=== PATIENT | female | born 1995 | race Two or more races ===

== ENCOUNTER 2022-01-20 18:09 | Observation (INO) | payer OTHER ==
[2022-01-20] MEDS ORDERED: LACTATED RINGERS SOLUTION 1000 ML INFUS.BAG IV ONE ×2 (19:49→21:17)
[2022-01-20] MEDS ORDERED: ONDANSETRON 4 MG/2 ML VIAL IVPUSH ONE (19:49)
[2022-01-20] MEDS ORDERED: FAMOTIDINE 20 MG/50 ML IVPB 20 MG/50 ML MG IVPB ONE ×2 (19:49→20:14)
[2022-01-20] MEDS ORDERED: ONDANSETRON 4 MG/2 ML VIAL ONE (20:14)
[2022-01-20 20:50] LABS: BASO % 0.3 % (0-2.0); EOS % 0.4 % (0-4.5); HEMATOCRIT 41.3 % (32.4-45.2); LYMPH % 12.8 % (8-40); MCH 31.5 pg (25.7-33.7); MCHC 33.8 g/dl (32.0-36.0); MEAN CELL VOLUME 93.3 fl (80-96); MEAN PLT VOLUME 8.5 fl (7.5-11.1); MONO % 5.5 % (3.8-10.2); PLATELET COUNT 208 10^3/uL (134-434); RBC 4.43 M/mm3 (3.60-5.2); RDW 13.2 % (11.6-15.6); WHITE BLOOD COUNT 6.9 K/mm3 (4.0-10.0)
[2022-01-20 20:53] LABS: URINE APPEARANCE CLEAR; URINE BILIRUBIN NEGATIVE (NEGATIVE); URINE COLOR YELLOW; URINE GLUCOSE (UA) NEGATIVE (NEGATIVE); URINE KETONE 2+ (NEGATIVE); URINE LEUK ESTERASE NEGATIVE (NEGATIVE); URINE NITRITE NEGATIVE (NEGATIVE); URINE PROTEIN TRACE (NEGATIVE)
[2022-01-20] MEDS ORDERED: ACETAMINOPHEN 1000 MG/100 ML BAG IVPB ONE (21:13)
[2022-01-20] MEDS ORDERED: LORazepam 2 MG/ML SDV VIAL IVPUSH ONE (21:16)
[2022-01-20] MEDS ORDERED: DICYCLOMINE HCL 20 MG/2 ML AMPUL IM ONE (21:17)
[2022-01-20] MEDS ORDERED: METOCLOPRAMIDE HCL INJECTION 10 MG/2 ML VIAL IVPB ONE (21:17)
[2022-01-20] MEDS ORDERED: ACETAMINOPHEN INJECTION 100 ML IVPB ONE (21:33)
[2022-01-20] MEDS ORDERED: METOCLOPRAMIDE HCL INJECTION 10 MG/2 ML VIAL ONE (21:33)
[2022-01-20 22:03] LABS: ALBUMIN 4.6 g/dl (3.4-5.0); CALCIUM 10.2 mg/dL (8.5-10.1)
[2022-01-20 22:04] LABS: BLOOD UREA NITROGEN 11.5 mg/dL (7-18)
[2022-01-20 22:06] LABS: CREATININE 0.9 mg/dL (0.55-1.3)
[2022-01-20 22:08] LABS: BILIRUBIN,TOTAL 1.1 mg/dL (0.2-1)
[2022-01-21] MEDS ORDERED: KETOROLAC TROMETHAMINE 30 MG/1 ML VIAL IVPUSH ONE (01:41)
[2022-01-21] MEDS ORDERED: KETOROLAC TROMETHAMINE 30 MG/1 ML VIAL IM ONE (01:41)
[2022-01-21] MEDS ORDERED: METOCLOPRAMIDE HCL INJECTION 10 MG/2 ML VIAL IVPUSH PRN (01:44)
[2022-01-21] MEDS ORDERED: LACTATED RINGERS SOLUTION 1,000 ML/1,000 ML INFUS.BAG IV SCH (02:00)
[2022-01-21] MEDS ORDERED: KETOROLAC TROMETHAMINE 30 MG/1 ML VIAL ONE (02:06)
[2022-01-21 03:28] LABS: BILIRUBIN,DIRECT 0.3 mg/dL (0.0-0.2)
[2022-01-21 07:33] VITALS: TEMP 97.4
[2022-01-21 08:31] LABS: COCAINE, UR NEGATIVE (NEGATIVE); OPIATES, URI NEGATIVE (NEGATIVE); URINE BARBITURATES NEGATIVE (NEGATIVE)
[2022-01-21 08:32] LABS: METHADONE, UR NEGATIVE (NEGATIVE); PHENCYCLIDINE,URINE NEGATIVE (NEGATIVE); URINE AMPHETAMINES NEGATIVE (NEGATIVE); URINE BENZODIAZEPINES NEGATIVE (NEGATIVE)
[2022-01-21 09:29] VITALS: BP 116/67; PULSE 67; RESP 18
== END 2022-01-21 10:30 | disposition left against medical advice (07) ==
LOC: JER 18:09 → JERBED 01-21 00:25
PROVIDERS: ADMIT Internal Medicine; ATTEND Nurse Practitioner Acute Care
PROC: 3E033GC Introduction of Other Therapeutic Substance into Peripheral Vein, Percutaneous Approach (ICD-10-PCS; principal; 2022-01-21)
PROC: 3E033NZ Introduction of Analgesics, Hypnotics, Sedatives into Peripheral Vein, Percutaneous Approach (ICD-10-PCS; 2022-01-21)
PROC: 3E0333Z Introduction of Anti-inflammatory into Peripheral Vein, Percutaneous Approach (ICD-10-PCS; 2022-01-21)
PROC: 3E0337Z Introduction of Electrolytic and Water Balance Substance into Peripheral Vein, Percutaneous Approach (ICD-10-PCS; 2022-01-21)
DX: F12.288 Cannabis dependence with other cannabis-induced disorder (principal); R11.2 Nausea with vomiting, unspecified; F17.290 Nicotine dependence, other tobacco product, uncomplicated
CPT/HCPCS: 0241U-QW; 36415; 74177-TC; 76705-TC; 76830-TC; 80053; 80307; 81003; 82248; 83690; 84703; 85025; 87086; 93005; 93010; 96361; 96365; 96375; 99285-25; G0378; Q9967

== ENCOUNTER 2022-01-21 15:04 | Observation (INO) | payer OTHER ==
[2022-01-21] MEDS ORDERED: METOCLOPRAMIDE HCL INJECTION 10 MG/2 ML VIAL IVPUSH ONE (15:33)
[2022-01-21] MEDS ORDERED: SODIUM CHLORIDE 1,000 ML IV STA (15:33)
[2022-01-21] MEDS ORDERED: METOCLOPRAMIDE HCL INJECTION 10 MG/2 ML VIAL ONE (15:47)
[2022-01-21] MEDS ORDERED: FAMOTIDINE 20 MG/50 ML IVPB 20 MG/50 ML MG IVPB ONE ×2 (17:07→17:17)
[2022-01-21] MEDS ORDERED: MAG HYDROX/AL HYDROX/SIMETH 30 ML UNIT-DOSE CUP ONE (17:17)
[2022-01-21 18:06] LABS: BASO % 0.3 % (0-2.0); EOS % 0.1 % (0-4.5); HEMATOCRIT 31.7 % (32.4-45.2); HEMOGLOBIN 10.9 GM/dL (10.7-15.3); MCHC 34.6 g/dl (32.0-36.0); MEAN CELL VOLUME 92.7 fl (80-96); MEAN PLT VOLUME 8.7 fl (7.5-11.1); MONO % 7.8 % (3.8-10.2); NEUT % 79.8 % (42.8-82.8); PLATELET COUNT 171 10^3/uL (134-434); RBC 3.42 M/mm3 (3.60-5.2); WHITE BLOOD COUNT 5.4 K/mm3 (4.0-10.0)
[2022-01-21] MEDS ORDERED: HALOPERIDOL LACTATE 5 MG/ML IM ONE (18:12)
[2022-01-21] MEDS ORDERED: LACTATED RINGERS SOLUTION 1000 ML INFUS.BAG IV ONE (18:13)
[2022-01-21 18:27] LABS: CALCIUM 8.8 mg/dL (8.5-10.1)
[2022-01-21 18:28] LABS: BLOOD UREA NITROGEN 9.4 mg/dL (7-18)
[2022-01-21 18:30] LABS: CREATININE 0.6 mg/dL (0.55-1.3)
[2022-01-21 18:32] LABS: BILIRUBIN,TOTAL 1.1 mg/dL (0.2-1); TOT PROT 7.1 g/dl (6.4-8.2)
[2022-01-21 18:34] LABS: ALBUMIN 3.7 g/dl (3.4-5.0)
[2022-01-21] MEDS ORDERED: HALOPERIDOL LACTATE 5 MG/ML ONE (18:37)
[2022-01-21] MEDS ORDERED: morphine CARPU-JECT 2 MG/1 ML DISP.SYRIN IVPUSH ONE (19:48)
[2022-01-21] MEDS ORDERED: DICYCLOMINE HCL 20 MG/2 ML AMPUL IM ONE (19:49)
[2022-01-21] MEDS ORDERED: METOCLOPRAMIDE HCL INJECTION 10 MG/2 ML VIAL IVPUSH PRN (22:46)
[2022-01-21] MEDS ORDERED: KETOROLAC TROMETHAMINE 15 MG/ML VIAL IVPUSH PRN (22:47)
[2022-01-21] MEDS ORDERED: MELATONIN 5 MG TABLETS PO ONE (22:47)
[2022-01-21] MEDS ORDERED: MELATONIN 5 MG TABLETS ONE ×2 (22:52→22:59)
[2022-01-21] MEDS ORDERED: LACTATED RINGERS SOLUTION 1,000 ML/1,000 ML INFUS.BAG IV SCH (23:30)
[2022-01-22 00:45] VITALS: BMI 18.4
[2022-01-22 07:51] VITALS: BP 120/73; PULSE 74; RESP 20; TEMP 98.3
== END 2022-01-22 11:13 | disposition home or self-care (01) ==
LOC: JER 15:04 → INTOOBSV 22:35 → JERBED 22:35 → J8W 01-22 06:07
PROVIDERS: ADMIT Internal Medicine; ATTEND Nurse Practitioner Acute Care
PROC: 3E023GC Introduction of Other Therapeutic Substance into Muscle, Percutaneous Approach (ICD-10-PCS; principal; 2022-01-21)
PROC: 3E023GC Introduction of Other Therapeutic Substance into Muscle, Percutaneous Approach (ICD-10-PCS; 2022-01-21)
PROC: 3E033GC Introduction of Other Therapeutic Substance into Peripheral Vein, Percutaneous Approach (ICD-10-PCS; 2022-01-21)
DX: R11.10 Vomiting, unspecified (principal); F12.10 Cannabis abuse, uncomplicated; F31.9 Bipolar disorder, unspecified; R53.81 Other malaise
CPT/HCPCS: 36415; 80053; 83690; 85025; 93005; 93010; 96365; 96372; 99285-25; G0378

== ENCOUNTER 2022-01-22 15:06 | Emergency (ER) | payer OTHER ==
[2022-01-22 15:22] VITALS: BP 133/92; PULSE 87; RESP 16; TEMP 98.2; BMI 25.3
[2022-01-22] MEDS ORDERED: HALOPERIDOL LACTATE 5 MG/ML IM ONE (16:50)
[2022-01-22] MEDS ORDERED: SODIUM CHLORIDE 0.9% 500 ML INFUS.BAG IV ONE (16:50)
[2022-01-22] MEDS ORDERED: FAMOTIDINE 20 MG/50 ML IVPB 20 MG/50 ML MG IVPB ONE ×2 (16:50→17:23)
[2022-01-22] MEDS ORDERED: ONDANSETRON 4 MG/2 ML VIAL IVPUSH ONE (16:51)
[2022-01-22] MEDS ORDERED: ONDANSETRON 4 MG/2 ML VIAL ONE (17:22)
[2022-01-22] MEDS ORDERED: HALOPERIDOL LACTATE 5 MG/ML ONE (18:20)
[2022-01-22 18:50] LABS: BASO % 0.3 % (0-2.0); EOS % 0.2 % (0-4.5); HEMATOCRIT 34.3 % (32.4-45.2); HEMOGLOBIN 11.7 GM/dL (10.7-15.3); LYMPH % 9.7 % (8-40); MCH 31.8 pg (25.7-33.7); MEAN CELL VOLUME 93.4 fl (80-96); MEAN PLT VOLUME 9.7 fl (7.5-11.1); NEUT % 85.8 % (42.8-82.8); PLATELET COUNT 151 10^3/uL (134-434); RBC 3.68 M/mm3 (3.60-5.2); WHITE BLOOD COUNT 5.4 K/mm3 (4.0-10.0)
[2022-01-22 19:01] LABS: CALCIUM 9.1 mg/dL (8.5-10.1)
[2022-01-22 19:02] LABS: ALBUMIN 4.2 g/dl (3.4-5.0)
[2022-01-22 19:05] LABS: CREATININE 0.6 mg/dL (0.55-1.3)
[2022-01-22 19:06] LABS: BILIRUBIN,TOTAL 0.9 mg/dL (0.2-1); TOT PROT 7.8 g/dl (6.4-8.2)
== END 2022-01-23 00:35 | disposition left against medical advice (07) ==
LOC: JER 15:06
PROC: 3E023GC Introduction of Other Therapeutic Substance into Muscle, Percutaneous Approach (ICD-10-PCS; principal; 2022-01-22)
PROC: 3E033GC Introduction of Other Therapeutic Substance into Peripheral Vein, Percutaneous Approach (ICD-10-PCS; principal; 2022-01-22)
DX: R11.10 Vomiting, unspecified (principal)
CPT/HCPCS: 36415; 80053; 83690; 84703; 85025; 99284-25

== ENCOUNTER 2022-01-28 23:37 | Emergency (ER) | payer OTHER ==
[2022-01-29] VITALS: BP 106/72; PULSE 129; RESP 18; TEMP 98.1; BMI 18.8
[2022-01-29] MEDS ORDERED: METOCLOPRAMIDE HCL INJECTION 10 MG/2 ML VIAL IVPB ONE (00:54)
[2022-01-29] MEDS ORDERED: SODIUM CHLORIDE 0.9% 500 ML INFUS.BAG IV ONE (00:54)
[2022-01-29] MEDS ORDERED: METOCLOPRAMIDE HCL INJECTION 10 MG/2 ML VIAL ONE (00:57)
[2022-01-29 01:21] LABS: BASO % 0.6 % (0-2.0); EOS % 2.8 % (0-4.5); LYMPH % 28.3 % (8-40); MCH 31.6 pg (25.7-33.7); MCHC 34.2 g/dl (32.0-36.0); MEAN CELL VOLUME 92.3 fl (80-96); MEAN PLT VOLUME 8.5 fl (7.5-11.1); MONO % 11.9 % (3.8-10.2); NEUT % 56.4 % (42.8-82.8); PLATELET COUNT 306 10^3/uL (134-434); RBC 4.77 M/mm3 (3.60-5.2); RDW 13.4 % (11.6-15.6); WHITE BLOOD COUNT 4.9 K/mm3 (4.0-10.0)
[2022-01-29 01:36] LABS: CALCIUM 9.9 mg/dL (8.5-10.1)
[2022-01-29 01:37] LABS: ALBUMIN 4.4 g/dl (3.4-5.0); BLOOD UREA NITROGEN 6.3 mg/dL (7-18)
[2022-01-29] MEDS ORDERED: POTASSIUM CHLORIDE TABS 20 MEQ TABLET.ER (FP) PO ONE ×2 (01:39→02:04)
[2022-01-29 01:40] LABS: CREATININE 0.6 mg/dL (0.55-1.3)
[2022-01-29 01:42] LABS: BILIRUBIN,TOTAL 0.8 mg/dL (0.2-1); TOT PROT 8.2 g/dl (6.4-8.2)
[2022-01-29] MEDS ORDERED: ACETAMINOPHEN 1000 MG/100 ML BAG IVPB ONE (02:19)
[2022-01-29] MEDS ORDERED: FAMOTIDINE 20 MG/50 ML IVPB 20 MG/50 ML MG IVPB ONE ×2 (02:19→02:50)
[2022-01-29] MEDS ORDERED: ACETAMINOPHEN INJECTION 100 ML IVPB ONE (02:50)
== END 2022-01-29 04:02 | disposition home or self-care (01) ==
LOC: JER 23:37
PROC: 3E0333Z Introduction of Anti-inflammatory into Peripheral Vein, Percutaneous Approach (ICD-10-PCS; principal; 2022-01-28)
PROC: 3E033GC Introduction of Other Therapeutic Substance into Peripheral Vein, Percutaneous Approach (ICD-10-PCS; 2022-01-28)
PROC: 3E033GC Introduction of Other Therapeutic Substance into Peripheral Vein, Percutaneous Approach (ICD-10-PCS; 2022-01-28)
DX: R11.10 Vomiting, unspecified (principal)
CPT/HCPCS: 36415; 80053; 84703; 85025; 99284-25

== ENCOUNTER 2022-01-31 19:17 | Emergency (ER) | payer OTHER ==
[2022-01-31 19:22] VITALS: BP 127/61; PULSE 125; RESP 20; TEMP 97.8; BMI 18.6
[2022-01-31] MEDS ORDERED: ONDANSETRON *ODT* 4 MG TABLET SL ONE (20:14)
[2022-01-31] MEDS ORDERED: ONDANSETRON *ODT* 4 MG TABLET ONE (20:16)
[2022-01-31 20:31] LABS: EPI CELLS 35 /uL (0-25.1); HYALINE CASTS 4 /uL (0-3.1); URINE APPEARANCE CLOUDY; URINE BACTERIA 7 /uL (0-1359); URINE BILIRUBIN 1+ (NEGATIVE); URINE COLOR DK YELLOW; URINE GLUCOSE (UA) NEGATIVE (NEGATIVE); URINE KETONE TRACE (NEGATIVE); URINE LEUK ESTERASE TRACE (NEGATIVE); URINE NITRITE NEGATIVE (NEGATIVE); URINE PROTEIN 1+ (NEGATIVE); URINE WBC 20 /uL (0-25.8)
[2022-01-31 22:50] LABS: URINE RBC 97 /uL (0-23.9)
== END 2022-01-31 21:22 | disposition home or self-care (01) ==
LOC: JERFT 19:17
DX: R11.10 Vomiting, unspecified (principal)
CPT/HCPCS: 81003; 84703; 87086; 93005; 93010; 99284-25; Q0162